=== PATIENT | female | born 1990 | race American Indian/Alaskan Native ===

== ENCOUNTER 2019-06-26 21:41 | Emergency (ER) | payer BC ==
--- NOTE | 2019-06-26 22:10 | EDM.PDOC ---
ED HPI GENERAL MEDICAL PROBLEM - General Chief Complaint: Abdominal Pain Stated Complaint: ABDOMINAL PAIN Time Seen by Provider: 06/26/19 21:42 Source of Information: Reports: Patient History Limitations: Reports: No Limitations - History of Present Illness INITIAL COMMENTS - FREE TEXT/NARRATIVE: HISTORY OF PRESENT ILLNESS: Patient is a 28-year-old female who presents with lower abdominal pain which she describes as bloating which is been going on since Monday. States that bloating sensation is mild and constant without radiation. Denies any urinary symptoms. Has white cug-gjps-dalbjcil vaginal discharge. No recent antibiotics. Has distant history of HSV but no other STIs. Denies any new sexual partners. Denies any diarrhea. States she feels constipated but did have a bowel movement today. Denies any melena or hematochezia. No chest pain or dyspnea. No fevers or chills. States her last. LMP was the first week in May and is unsure if she is . Denies any rash. Has nausea but denies any emesis. No vaginal bleeding. REVIEW OF SYSTEMS: Other than the symptoms associated with the present events, the following is reported with regard to recent health: General: (-) fever. HENT: (-) congestion. Respiratory: (-) cough. Cardiovascular: (-) chest pain. GI: (+) abdominal bloating sensation : (-) urinary complaints. Musculoskeletal: (-) other aches or pains. Endocrine: (-) generalized weakness. Neurological: (-) localized weakness. Skin: (-) rash PAST MEDICAL HISTORY: reviewed as per nursing notes SOCIAL HISTORY: reviewed as per nursing notes, MEDICATIONS: Per nurse's note ALLERGIES: Per nurse's note, reviewed by me PHYSICAL EXAMINATION: GENERALIZED APPEARANCE: well developed, well nourished in no distress VITAL SIGNS: Per nurse's note, reviewed by me SKIN: Warm, dry; (-) cyanosis; (-) rash. HEAD: (-) scalp swelling, (-) tenderness. EYES: (-) conjunctival pallor, (-) scleral icterus. ENMT: (-) stridor; mucous membranes moist. NECK: (-) tenderness, (-) stiffness, CHEST AND RESPIRATORY: (-) rales, (-) rhonchi, (-) wheezes; breath sounds equal bilaterally. HEART AND CARDIOVASCULAR: (-) irregularity; (-) murmur, (-) gallop. ABDOMEN AND GI: Soft; (+)very mild suprapubic abdominal tenderness, (-) RLQ or LLQ tenderness. (-) guarding, (-) rebound, (-) palpable masses, no McBurney' s point tenderness. EXTREMITIES: (-) deformity, (-) edema. NEURO AND PSYCH: Alert. Cranial nerves grossly intact; strength symmetric. gait steady DIAGNOSTICS: US: Tiny intrauterine fluid collection likely representing a very early gestational sac. consider repeat ultrasound in 1 week to evaluate viability. Labs reviewed EMERGENCY DEPARTMENT COURSE AND TREATMENT: Patient's condition remained stable during Emergency Department evaluation. Pt with symptoms of abdominal bloating but no pain and very minimal suprapubic tenderness. No peritoneal signs. Do not suspect ectopic at this time. She understands she must f/u with ob in 1-2 days and have repeat u/s in 1 week. She must return to ED immediately with any pain, vaginal bleeding, syncope or any new or worsening symptoms. Expressed verbal understanding. UA noted, appears contaminated, will await culture. PLAN AND FOLLOW-UP: Patient received written and verbal instructions regarding this condition. Return to ED immediately with any new or worsening symptoms. Follow up to be arranged by patient with pcp in 1-2 days for further evaluation. Given discharge precautions. patient expressed verbal understanding. 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 He is on valacyclovir 1 g daily.) Other Dermatologic History: Mastitis - Infectious Disease History Infectious Disease History: Reports: None - Past Surgical History Head Surgeries/Procedures: Reports: None Social & Family History - Family History Family Medical History: Noncontributory - Tobacco Use Smoking Status *Q: Never Smoker - Caffeine Use Caffeine Use: Reports: Soda - Recreational Drug Use Recreational Drug Use: No ED ROS GENERAL - Review of Systems Review Of Systems: See Below (see dictation) ED EXAM, GENERAL - Physical Exam Exam: See Below (see dictation) Course - Vital Signs Last Recorded V/S: Last Vital Signs Temp 96.9 F 06/26/19 21:45 Pulse 68 06/26/19 21:45 Resp 18 06/26/19 21:45 BP 123/78 06/26/19 21:45 Pulse Ox 98 06/26/19 21:45 - Orders/Labs/Meds Orders: Active Orders 24 hr Category Date Time Status CULTURE URINE [RM] Stat Lab 06/26/19 21:50 Received Labs: Laboratory Tests 06/26/19 06/26/19 06/26/19 Range/Units 21:50 21:50 22:34 WBC 7.75 (4.0-11.0) K/uL RBC 4.42 (4.30-5.90) M/uL Hgb 12.0 (12.0-16.0) g/dL Hct 37.9 (36.0-46.0) % MCV 85.7 (80.0-98.0) fL MCH 27.1 (27.0-32.0) pg MCHC 31.7 (31.0-37.0) g/dL RDW Std Deviation 41.0 (28.0-62.0) fl RDW Coeff of Rafaela 13 (11.0-15.0) % Plt Count 195 (150-400) K/uL MPV 10.70 (7.40-12.00) fL Neut % (Auto) 45.8 L (48.0-80.0) % Lymph % (Auto) 45.0 H (16.0-40.0) % Barron % (Auto) 6.2 (0.0-15.0) % Eos % (Auto) 2.7 (0.0-7.0) % Baso % (Auto) 0.3 (0.0-1.5) % Neut # (Auto) 3.6 (1.4-5.7) K/uL Lymph # (Auto) 3.5 H (0.6-2.4) K/uL Barron # (Auto) 0.5 (0.0-0.8) K/uL Eos # (Auto) 0.2 (0.0-0.7) K/uL Baso # (Auto) 0.0 (0.0-0.1) K/uL Nucleated RBC % 0.0 /100WBC Nucleated RBCs # 0 K/uL Sodium (136-145) mmol/L Potassium (3.5-5.1) mmol/L Chloride (98-107) mmol/L Carbon Dioxide (21.0-32.0) mmol/L BUN (7.0-18.0) mg/dL Creatinine (0.6-1.0) mg/dL Est Cr Clr Drug Dosing mL/min Estimated GFR (MDRD) ml/min Glucose (74-106) mg/dL Calcium (8.5-10.1) mg/dL Total Bilirubin (0.2-1.0) mg/dL AST (15-37) IU/L ALT (14-63) IU/L Alkaline Phosphatase (46-116) U/L Total Protein (6.4-8.2) g/dL Albumin (3.4-5.0) g/dL Globulin (2.6-4.0) g/dL Albumin/Globulin Ratio (0.9-1.6) Lipase (73-393) U/L Urine Color YELLOW Urine Appearance CLEAR Urine pH 6.0 (5.0-8.0) Ur Specific [place] 1.010 (1.001-1.035) Urine Protein NEGATIVE (NEGATIVE) mg/dL Urine Glucose (UA) NEGATIVE (NEGATIVE) mg/dL Urine Ketones NEGATIVE (NEGATIVE) mg/dL Urine Occult Blood NEGATIVE (NEGATIVE) Urine Nitrite NEGATIVE (NEGATIVE) Urine Bilirubin NEGATIVE (NEGATIVE) Urine Urobilinogen 0.2 (<2.0) EU/dL Ur Leukocyte Esterase TRACE H (NEGATIVE) Urine RBC 0-1 (0-2/HPF) Urine WBC 0-1 (0-5/HPF) Ur Epithelial Cells OCCASIONAL (NONE-FEW) Urine Bacteria RARE (NEGATIVE) Urine HCG, Qual POSITIVE (NEGATIVE) 06/26/19 Range/Units 22:34 WBC (4.0-11.0) K/uL RBC (4.30-5.90) M/uL Hgb (12.0-16.0) g/dL Hct (36.0-46.0) % MCV (80.0-98.0) fL MCH (27.0-32.0) pg MCHC (31.0-37.0) g/dL RDW Std Deviation (28.0-62.0) fl RDW Coeff of Rafaela (11.0-15.0) % Plt Count (150-400) K/uL MPV (7.40-12.00) fL Neut % (Auto) (48.0-80.0) % Lymph % (Auto) (16.0-40.0) % Barron % (Auto) (0.0-15.0) % Eos % (Auto) (0.0-7.0) % Baso % (Auto) (0.0-1.5) % Neut # (Auto) (1.4-5.7) K/uL Lymph # (Auto) (0.6-2.4) K/uL Barron # (Auto) (0.0-0.8) K/uL Eos # (Auto) (0.0-0.7) K/uL Baso # (Auto) (0.0-0.1) K/uL Nucleated RBC % /100WBC Nucleated RBCs # K/uL Sodium 142 (136-145) mmol/L Potassium 3.9 (3.5-5.1) mmol/L Chloride 106 (98-107) mmol/L Carbon Dioxide 26.1 (21.0-32.0) mmol/L BUN 5 L (7.0-18.0) mg/dL Creatinine 0.9 (0.6-1.0) mg/dL Est Cr Clr Drug Dosing 96.39 mL/min Estimated GFR (MDRD) > 60.0 ml/min Glucose 101 (74-106) mg/dL Calcium 8.4 L (8.5-10.1) mg/dL Total Bilirubin 0.2 (0.2-1.0) mg/dL AST 18 (15-37) IU/L ALT 24 (14-63) IU/L Alkaline Phosphatase 72 (46-116) U/L Total Protein 7.0 (6.4-8.2) g/dL Albumin 3.5 (3.4-5.0) g/dL Globulin 3.5 (2.6-4.0) g/dL Albumin/Globulin Ratio 1.0 (0.9-1.6) Lipase 140 (73-393) U/L Urine Color Urine Appearance Urine pH (5.0-8.0) Ur Specific [place] (1.001-1.035) Urine Protein (NEGATIVE) mg/dL Urine Glucose (UA) (NEGATIVE) mg/dL Urine Ketones (NEGATIVE) mg/dL Urine Occult Blood (NEGATIVE) Urine Nitrite (NEGATIVE) Urine Bilirubin (NEGATIVE) Urine Urobilinogen (<2.0) EU/dL Ur Leukocyte Esterase (NEGATIVE) Urine RBC (0-2/HPF) Urine WBC (0-5/HPF) Ur Epithelial Cells (NONE-FEW) Urine Bacteria (NEGATIVE) Urine HCG, Qual (NEGATIVE) Departure - Departure Time of Disposition: 23:51 Disposition: Home, Self-Care 01 Condition: Good Clinical Impression: , Abdominal pain - Discharge Information *PRESCRIPTION DRUG MONITORING PROGRAM REVIEWED*: Not Applicable *COPY OF PRESCRIPTION DRUG MONITORING REPORT IN PATIENT SHERLEY: Not Applicable Instructions: First Trimester of , [id number] Referrals: [facility] [Outside] Ulysses Sherwood MD [Physician] - 1 Day Forms: ED Department Discharge Additional Instructions: The following information is given to patients seen in the emergency department who are being discharged to home. This information is to outline your options for follow-up care. We provide all patients seen in our emergency department with a follow-up referral. The need for follow-up, as well as the timing and circumstances, are variable depending upon the specifics of your emergency department visit. If you don't have a primary care physician on staff, we will provide you with a referral. We always advise you to contact your personal physician following an emergency department visit to inform them of the circumstance of the visit and for follow-up with them and/or the need for any referrals to a consulting specialist. The emergency department will also refer you to a specialist when appropriate. This referral assures that you have the opportunity for follow-up care with a specialist. All of these measure are taken in an effort to provide you with optimal care, which includes your follow-up. Under all circumstances we always encourage you to contact your private physician who remains a resource for coordinating your care. When calling for follow-up care, please make the office aware that this follow-up is from your recent emergency room visit. If for any reason you are refused follow-up, please contact the [facility] Emergency Department at and asked to speak to the emergency department charge nurse. Sepsis Event Note - Evaluation Sepsis Screening Result: No Definite Risk - Focused Exam Vital Signs: Vital Signs Temp Pulse Resp BP Pulse Ox 06/26/19 21:45 96.9 F 68 18 123/78 98 Date Exam was Performed: 06/27/19 Time Exam was Performed: 00:08 - My Orders Last 24 Hours: My Active Orders 06/26/19 21:50 CULTURE URINE [RM] Stat - Assessment/Plan Last 24 Hours: My Active Orders 06/26/19 21:50 CULTURE URINE [RM] Stat
[2019-06-26 23:10] LABS: BLOOD UREA NITROGEN,BUN 5 mg/dL (7.0-18.0); CARBON DIOXIDE,CO2 26.1 mmol/L (21.0-32.0); CHLORIDE,CL 106 mmol/L (98-107); GLUCOSE RANDOM 101 mg/dL (74-106); LIPASE 140 U/L (73-393); POTASSIUM,K 3.9 mmol/L (3.5-5.1); SODIUM,NA 142 mmol/L (136-145)
--- NOTE | 2019-06-26 23:46 | US ---
INDICATION: Early with cramping and right-sided abdominal pain. OBSTETRICAL ULTRASOUND Technique: Transabdominal and transvaginal scanning of the pelvis was performed. Findings: The uterus contains a very small fluid collection measuring 4 x 2 x 3 millimeters. There is a suggestion of a tiny yolk sac within this fluid collection, suggesting that the collection represents a very early gestational sac. No embryonic pole or embryonic cardiac activity can be seen, likely due to the presumed very early stage of gestation. The ovaries appear within normal limits bilaterally. There is a probable corpus luteum within the right ovary. No adnexal masses are demonstrated. No significant free pelvic fluid is identified. IMPRESSION: Tiny intrauterine fluid collection likely representing a very early gestational sac. Consider repeat ultrasound in 1 week to evaluate viability. MICKY NAVARRO MD [employer] Dictated by Ced Navarro MD @ 06/26/2019 11:42:23 PM Dictated by: Ced Navarro MD @ 06/26/2019 23:45:22 (Electronically Signed)
== END 2019-06-27 00:07 | disposition home or self-care (01) ==
LOC: MW.ED 21:41
DX: O99.89 Other specified diseases and conditions complicating pregnancy, childbirth and the puerperium (principal); R10.30 Lower abdominal pain, unspecified
CPT/HCPCS: 36415; 76801; 76801-26; 80053; 81001; 81025; 83690; 85025; 87086; 99283; 99284-25

== ENCOUNTER 2019-08-02 10:55 | Emergency (ER) | payer BC ==
[2019-08-02] MEDS ORDERED: Nitrofurantoin Monohydrate/Macrocrystalline 100 MG Cap PO ONE (11:37)
--- NOTE | 2019-08-02 11:38 | EDM.PDOC ---
ED [facility] GENERAL MEDICAL PROBLEM - General Chief Complaint: Genitourinary Problem Stated Complaint: LOWER ABDOMINAL PAIN/PRESSURE Time Seen by Provider: 08/02/19 11:38 Source of Information: Reports: Patient History Limitations: Reports: No Limitations - History of Present Illness INITIAL COMMENTS - FREE TEXT/NARRATIVE: Patient is 28-year-old female presenting 10 weeks with complaints of suprapubic pressure. Patient feels irritation and feels like she has a urinary tract infection. The pain does not radiate anywhere. Patient does not have associated dysuria or hematuria. Patient states the symptoms started this morning. Patient does not have any associated fevers, chills, flank pain, vomiting, decreased appetite. Patient has no concern for sexually transmitted infection. Patient is monogamous with 1 partner. 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 Patient denies vaginal bleeding or significant cramping. Patient had no prior complications on previous . Pmhx: None Pshx: None Family Hx: noncontributory Smoking history? no Etoh use? none Drug use? none In addition to that documented in the HPI above, the additional ROS was obtained : Constitutional: Denies fevers or chills Eyes: Denies vision changes ENMT: Denies sore throat CV: Denies chest pain Resp: Denies SOB GI: Denies vomiting or diarrhea : Denies painful urination MSK: Denies recent trauma Skin: Denies new rashes Neuro: Denies new numbness or tingling or weakness Endocrine: Denies unexpected weight loss Heme: Denies bleeding disorders I have reviewed the triage vital signs Const: Well nourished, well developed, appears stated age Eyes: PERRL, no conjunctival injection HENT: NCAT, Neck supple without meningismus RESP: Unlabored respiratory effort GI: soft, non-tender, non-distended, no masses. No guarding or rebound MSK: No gross deformities appreciated Skin: Warm, dry. No rashes Neuro: Alert, viscosity inspector II-XII grossly intact. Sensation and motor function of extremities grossly intact. Psych: Appropriate mood and affect Assessment and plan: Patient 28-year-old female presenting with chief complaints consistent with urinary tract infection. Urinalysis demonstrates findings consistent with UTI. Patient initiated on antibiotics. I have no concern at this point for complications related to . No concern for sexually transmitted infection. 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 Patient initiated on antibiotics in the ER. Patient given return precautions. All questions were addressed and answered. Patient agrees with plan. 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: Musculoskeletal History: Reports: None Neurological History: Reports: None Psychiatric History: Reports: Anxiety, Depression Endocrine/Metabolic History: Reports: None Insulin Pump Model and Dietary Assistant: None Hematologic History: Reports: None Immunologic History: Reports: None Oncologic (Cancer) History: Reports: None Dermatologic History: Reports: Other (See Below) Other Dermatologic History: Mastitis - Infectious Disease History Infectious Disease History: Reports: Chicken Pox - Past Surgical History Head Surgeries/Procedures: Reports: None Social & Family History - Family History Family Medical History: Noncontributory - Tobacco Use Smoking Status *Q: Former Smoker Used Tobacco, but Quit: Yes Month/Year Tobacco Last Used: 2018 - Caffeine Use Caffeine Use: Reports: Soda - Recreational Drug Use Recreational Drug Use: No ED ROS GENERAL - Review of Systems Review Of Systems: See Below ED EXAM, RENAL/ - Physical Exam Exam: See Below Course - Vital Signs Last Recorded V/S: Last Vital Signs Temp 35.9 C L 08/02/19 11:03 Pulse 67 08/02/19 11:03 Resp 17 08/02/19 11:03 BP 106/70 08/02/19 11:03 Pulse Ox 100 08/02/19 11:03 - Orders/Labs/Meds Orders: Active Orders 24 hr Category Date Time Status CULTURE URINE [RM] Stat Lab 08/02/19 11:07 Received Labs: Laboratory Tests 08/02/19 08/02/19 Range/Units 11:07 11:07 Urine Color DARK YELLOW Urine Appearance CLOUDY Urine pH 7.0 (5.0-8.0) Ur Specific [place] 1.025 (1.001-1.035) Urine Protein 30 H (NEGATIVE) mg/dL Urine Glucose (UA) NEGATIVE (NEGATIVE) mg/dL Urine Ketones NEGATIVE (NEGATIVE) mg/dL Urine Occult Blood TRACE-INTACT H (NEGATIVE) Urine Nitrite POSITIVE H (NEGATIVE) Urine Bilirubin NEGATIVE (NEGATIVE) Urine Urobilinogen 1.0 (<2.0) EU/dL Ur Leukocyte Esterase LARGE H (NEGATIVE) Urine RBC 0-3 (0-2/HPF) Urine WBC 60-80 (0-5/HPF) Ur Epithelial Cells RARE (NONE-FEW) Urine Bacteria 3+ H (NEGATIVE) Urine HCG, Qual POSITIVE (NEGATIVE) Meds: Medications Discontinued Medications Generic Name Dose Route Start Last Admin Trade Name Freq PRN Reason Stop Dose Admin Nitrofurantoin Macrocrystals 100 mg 08/02/19 11:37 08/02/19 11:46 Macrobid PO 08/02/19 11:38 100 mg ONETIME ONE Administration Departure - Departure Time of Disposition: 11:38 Disposition: Home, Self-Care 01 Clinical Impression: UTI, Urinary tract infectious disease - Discharge Information Prescriptions: Nitrofurantoin Monohyd/M-Cryst [Macrobid 100 mg Capsule] 100 mg PO BID #9 capsule Instructions: Urinary Tract Infection, Adult, [id number] Referrals: Savita Bradford CNM [Primary Care Provider] - Forms: ED Department Discharge Additional Instructions: The following information is given to patients seen in the emergency department who are being discharged to home. This information is to outline your options for follow-up care. We provide all patients seen in our emergency department with a follow-up referral. The need for follow-up, as well as the timing and circumstances, are variable depending upon the specifics of your emergency department visit. If you don't have a primary care physician on staff, we will provide you with a referral. We always advise you to contact your personal physician following an emergency department visit to inform them of the circumstance of the visit and for follow-up with them and/or the need for any referrals to a consulting specialist. The emergency department will also refer you to a specialist when appropriate. This referral assures that you have the opportunity for follow-up care with a specialist. All of these measure are taken in an effort to provide you with optimal care, which includes your follow-up. Under all circumstances we always encourage you to contact your private physician who remains a resource for coordinating your care. When calling for follow-up care, please make the office aware that this follow-up is from your recent emergency room visit. If for any reason you are refused follow-up, please contact the [facility] Emergency Department at and asked to speak to the emergency department charge nurse. Sepsis Event Note - Evaluation Sepsis Screening Result: No Definite Risk - Focused Exam Vital Signs: Vital Signs Temp Pulse Resp BP Pulse Ox 08/02/19 11:03 35.9 C L 67 17 106/70 100 Date Exam was Performed: 08/02/19 Time Exam was Performed: 11:50 - My Orders Last 24 Hours: My Active Orders 08/02/19 11:07 CULTURE URINE [RM] Stat - Assessment/Plan Last 24 Hours: My Active Orders 08/02/19 11:07 CULTURE URINE [RM] Stat
== END 2019-08-02 11:49 | disposition home or self-care (01) ==
LOC: MW.ED 10:55
DX: O23.41 Unspecified infection of urinary tract in pregnancy, first trimester (principal); Z3A.10 10 weeks gestation of pregnancy; Z87.891 Personal history of nicotine dependence
CPT/HCPCS: 81001; 81025; 87086; 87088; 87186; 99284; A9270; 99282

== ENCOUNTER 2019-11-16 01:02 | Emergency (ER) | payer BC ==
[2019-11-16] MEDS ORDERED: Sodium Chloride 0.9% 10 ML Syringe FLUSH PRN (01:18)
[2019-11-16] MEDS ORDERED: Sodium Chloride 0.9% 2.5 ML Syringe FLUSH PRN (01:18)
[2019-11-16] MEDS ORDERED: Acetaminophen 500 MG Tab PO ONE (01:20)
[2019-11-16] MEDS ORDERED: fentaNYL 50 MCG/ML SDV IVPUSH ONE (01:20)
[2019-11-16 01:38] LABS: BLOOD UREA NITROGEN,BUN 4 mg/dL (7.0-18.0); CARBON DIOXIDE,CO2 24.6 mmol/L (21.0-32.0); CHLORIDE,CL 105 mmol/L (98-107); GLUCOSE RANDOM 91 mg/dL (74-106); POTASSIUM,K 3.7 mmol/L (3.5-5.1); SODIUM,NA 139 mmol/L (136-145)
--- NOTE | 2019-11-16 02:03 | EDM.PDOC ---
ED HPI GENERAL MEDICAL PROBLEM - General Chief Complaint: Trauma Stated Complaint: FELL OFF HORSE; 6 MO PREG Time Seen by Provider: 11/16/19 01:18 Source of Information: Reports: Patient, Old Records History Limitations: Reports: No Limitations - History of Present Illness INITIAL COMMENTS - FREE TEXT/NARRATIVE: 28-year-old female with no past medical history presenting with injuries after riding a horse. Patient presents through triage as a trauma alert. Patient states that around 7 PM this evening, she was bucked off of a horse. She states that she hit her left shoulder and the back of her neck. She does not think that she lost consciousness. She is currently , approximately 24 weeks and 6 days. . She arrives the emergency department complaining of pain to the left posterolateral neck, left hip, and the medial aspect of the left thigh. She is not currently taking any medications. ROS: A 10-point review of systems was negative, except as noted in the HPI (or in the ROS section of this note). Past medical history: Reviewed, no additional pertinent history. Surgical history: Reviewed in system, no additional pertinent history. Social history: Reviewed in system, no additional pertinent history. Family history: Reviewed in system, no additional pertinent history. PHYSICAL EXAM Vital signs reviewed. Nursing notes reviewed. Constitutional: Awake, alert, non-distressed. Head: Normocephalic, atraumatic. Eyes: EOMI, conjunctiva normal, no discharge, no scleral icterus. Pupils 3 mm bilaterally. Neck: Mild tenderness to palpation to the left side of the neck. Ears, Nose, Throat: External ears and nose normal, moist oral mucosa. No otorrhea or rhinorrhea. No raccoons eyes or parish sign. Cardiovascular: 2+ radial pulses bilaterally, capillary refill less than 2 seconds. Pulmonary: normal work of breathing, no accessory muscle use. CTA BL. Abdomen/GI: Soft, nontender, nondistended, no guarding or rigidity, no masses. Stable pelvis. Musculoskeletal: No deformities. Mild tenderness to palpation of the left hip. Integumentary: Appropriate color for ethnicity, warm, dry, no pallor or jaundice, no rash. Contusion over the left medial thigh. Neurologic: Alert, answering questions appropriately, normal speech, no facial droop, moving all extremities well. 5/5 strength all extremities, sensation intact to light touch x4 Psychiatric: Appropriate mood and affect, normal thought process. - Related Data Allergies Allergy/AdvReac Type Severity Reaction Status Date / Time No Known Allergies Allergy Verified 11/16/19 01:20 Home Meds: Home Meds . [No Known Home Meds] 11/16/19 [History] Past Medical History HEENT History: Reports: None Cardiovascular History: Reports: None Respiratory History: Reports: None Gastrointestinal History: Reports: None Genitourinary History: Reports: None HOME HEALTH TRAVEL OT History: Reports: Musculoskeletal History: Reports: None Neurological History: Reports: None Psychiatric History: Reports: Anxiety, Depression Endocrine/Metabolic History: Reports: None Insulin Pump Model and Health Policy Nurse: None Hematologic History: Reports: None Immunologic History: Reports: None Oncologic (Cancer) History: Reports: None Dermatologic History: Reports: Other (See Below) Other Dermatologic History: Mastitis - Infectious Disease History Infectious Disease History: Reports: Chicken Pox - Past Surgical History Head Surgeries/Procedures: Reports: None Social & Family History - Family History Family Medical History: Noncontributory - Tobacco Use Smoking Status *Q: Never Smoker Second Hand Smoke Exposure: No - Caffeine Use Caffeine Use: Reports: Coffee - Recreational Drug Use Recreational Drug Use: No Review of Systems - Review of Systems Review Of Systems: See Below ED EXAM, GENERAL - Physical Exam Exam: See Below ED ULTRASOUND - FAST Exam Indication: blunt trauma Exam type: FAST exam Findings: no free fluid noted Impression: normal exam Images archived: Yes Course - Vital Signs Text/Narrative:: Patient hemodynamically stable, afebrile, well-appearing, looks nontoxic. Differential diagnosis includes but is not limited to: Intracranial injury/hemorrhage, skull fracture, facial fractures, spine fractures, chest injury, aortic injury, pneumothorax, hemothorax, intraabdominal hemorrhage, bowel injury, solid organ injury, extremity fractures, pelvis fracture, abras ions, soft tissue injuries, placental abruption, uterine rupture, and many others. Trauma alert and cleared upon arrival. E-FAST ultrasound negative. Hemodynamically stable. IV access established and labs sent. Given IV fentanyl and acetaminophen for pain. Erp Implementation Consultant Dr. Oliveira was already in the emergency department and evaluated the patient at the bedside. Gtyoy-ca-ozjy ultrasound shows a fetus in the uterus with motion and normal cardiac activity with a heart rate of 139 bpm. Labs show mild leukocytosis, mild normocytic anemia. Normal INR and lactate. Normal electrolytes. Negative troponin. Negative alcohol, blood type Rh+ so RhoGam is not indicated. To CT scanner for gan scan series. These showed no acute findings other than a questionable left-sided TP fracture at L2. Pain well controlled after fentanyl and acetaminophen. The patient remained on bedside tocometric monitoring with heart rate 130-140s. Patient medically cleared from an emergency department standpoint and will go to labor and delivery for further evaluation and tocometric monitoring. I spoke with the passenger service representative Dr. Marielos Oliveira to apprise her of the patient's work-up and condition. Transferred to L&D in good condition.. Last Recorded V/S: Last Vital Signs Temp 36.1 C 11/16/19 01:03 Pulse 64 11/16/19 01:03 Resp 17 11/16/19 01:03 BP 102/49 L 11/16/19 01:03 Pulse Ox 97 11/16/19 01:03 - Orders/Labs/Meds Orders: Active Orders 24 hr Category Date Time Status Admission Status [Patient Status] [ADT] Stat ADT 11/16/19 04:08 Active Cardiac Monitoring [RC] . DIRECTED Care 11/16/19 01:18 Active Pulse Oximetry [RC] ASDIRECTED Care 11/16/19 01:18 Active Nothing Per Oral Diet [DIET] Diet 11/16/19 Dinner Active Sodium Chloride 0.9% [Saline Flush] Med 11/16/19 01:18 Active 10 ml FLUSH ASDIRECTED PRN Sodium Chloride 0.9% [Saline Flush] Med 11/16/19 01:18 Active 2.5 ml FLUSH ASDIRECTED PRN Saline Lock Insert [OM.PC] Stat Oth 11/16/19 01:19 Ordered Medication Orders Sodium Chloride (Saline Flush) 10 ml FLUSH ASDIRECTED PRN PRN Reason: Keep Vein Open Last Admin: 11/16/19 02:36 Dose: 10 ml Documented by: REGINE Sodium Chloride (Saline Flush) 2.5 ml FLUSH ASDIRECTED PRN PRN Reason: Keep Vein Open Last Admin: 11/16/19 02:36 Dose: 2.5 ml Documented by: REGINE Labs: Laboratory Tests 11/16/19 11/16/19 11/16/19 Range/Units 01:05 01:05 01:05 WBC (4.0-11.0) K/uL RBC (4.30-5.90) M/uL Hgb (12.0-16.0) g/dL Hct (36.0-46.0) % MCV (80.0-98.0) fL MCH (27.0-32.0) pg MCHC (31.0-37.0) g/dL RDW Std Deviation (28.0-62.0) fl RDW Coeff of Rafaela (11.0-15.0) % Plt Count (150-400) K/uL MPV (7.40-12.00) fL Neut % (Auto) (48.0-80.0) % Lymph % (Auto) (16.0-40.0) % [place] % (Auto) (0.0-15.0) % Eos % (Auto) (0.0-7.0) % Baso % (Auto) (0.0-1.5) % Neut # (Auto) (1.4-5.7) K/uL Lymph # (Auto) (0.6-2.4) K/uL [place] # (Auto) (0.0-0.8) K/uL Eos # (Auto) (0.0-0.7) K/uL Baso # (Auto) (0.0-0.1) K/uL INR 0.94 Lactate 1.2 (0.20-2.00) mmol/L Sodium 139 (136-145) mmol/L Potassium 3.7 (3.5-5.1) mmol/L Chloride 105 (98-107) mmol/L Carbon Dioxide 24.6 (21.0-32.0) mmol/L BUN 4 L (7.0-18.0) mg/dL Creatinine 0.8 (0.6-1.0) mg/dL Est Cr Clr Drug Dosing 108.44 mL/min Estimated GFR (MDRD) > 60.0 ml/min Glucose 91 (74-106) mg/dL Calcium 9.2 (8.5-10.1) mg/dL Total Bilirubin 0.2 (0.2-1.0) mg/dL AST 18 (15-37) IU/L ALT 12 L (14-63) IU/L Alkaline Phosphatase 87 (46-116) U/L Troponin I < 0.050 (0.000-0.056) ng/mL Total Protein 6.9 (6.4-8.2) g/dL Albumin 2.8 L (3.4-5.0) g/dL Globulin 4.1 H (2.6-4.0) g/dL Albumin/Globulin Ratio 0.7 L (0.9-1.6) Ethyl Alcohol <3 mg/dL Blood Type 11/16/19 11/16/19 Range/Units 01:05 01:05 WBC 12.91 H (4.0-11.0) K/uL RBC 3.93 L (4.30-5.90) M/uL Hgb 10.6 L (12.0-16.0) g/dL Hct 32.7 L (36.0-46.0) % MCV 83.2 (80.0-98.0) fL MCH 27.0 (27.0-32.0) pg MCHC 32.4 (31.0-37.0) g/dL RDW Std Deviation 36.4 (28.0-62.0) fl RDW Coeff of Rafaela 12 (11.0-15.0) % Plt Count 237 (150-400) K/uL MPV 11.80 (7.40-12.00) fL Neut % (Auto) 68.8 (48.0-80.0) % Lymph % (Auto) 25.2 (16.0-40.0) % [place] % (Auto) 4.9 (0.0-15.0) % Eos % (Auto) 0.9 (0.0-7.0) % Baso % (Auto) 0.2 (0.0-1.5) % Neut # (Auto) 8.9 H (1.4-5.7) K/uL Lymph # (Auto) 3.3 H (0.6-2.4) K/uL [place] # (Auto) 0.6 (0.0-0.8) K/uL Eos # (Auto) 0.1 (0.0-0.7) K/uL Baso # (Auto) 0.0 (0.0-0.1) K/uL INR Lactate (0.20-2.00) mmol/L Sodium (136-145) mmol/L Potassium (3.5-5.1) mmol/L Chloride (98-107) mmol/L Carbon Dioxide (21.0-32.0) mmol/L BUN (7.0-18.0) mg/dL Creatinine (0.6-1.0) mg/dL Est Cr Clr Drug Dosing mL/min Estimated GFR (MDRD) ml/min Glucose (74-106) mg/dL Calcium (8.5-10.1) mg/dL Total Bilirubin (0.2-1.0) mg/dL AST (15-37) IU/L ALT (14-63) IU/L Alkaline Phosphatase (46-116) U/L Troponin I (0.000-0.056) ng/mL Total Protein (6.4-8.2) g/dL Albumin (3.4-5.0) g/dL Globulin (2.6-4.0) g/dL Albumin/Globulin Ratio (0.9-1.6) Ethyl Alcohol mg/dL Blood Type A POSITIVE Meds: Medications Generic Name Dose Route Start Last Admin Trade Name Freq PRN Reason Stop Dose Admin Sodium Chloride 10 ml 11/16/19 01:18 11/16/19 02:36 Saline Flush FLUSH 10 ml ASDIRECTED PRN Administration Keep Vein Open Sodium Chloride 2.5 ml 11/16/19 01:18 11/16/19 02:36 Saline Flush FLUSH 2.5 ml ASDIRECTED PRN Administration Keep Vein Open Discontinued Medications Generic Name Dose Route Start Last Admin Trade Name Freq PRN Reason Stop Dose Admin Acetaminophen 1,000 mg 11/16/19 01:20 11/16/19 02:35 Tylenol Extra Strength PO 11/16/19 01:21 1,000 mg ONETIME ONE Administration Fentanyl 50 mcg 11/16/19 01:20 11/16/19 02:36 Fentanyl IVPUSH 11/16/19 01:21 Not Given ONETIME ONE Iopamidol 100 ml 11/16/19 02:29 11/16/19 02:29 Isovue-370 (76%) IVPUSH 11/16/19 02:30 100 ml ONETIME ONE Administration Departure - Departure Time of Disposition: 04:00 Disposition: DC/Tfer to Other 70 Clinical Impression: Animal-rider injured by fall from or being thrown from horse in noncollision accident, initial encounter, Left hip pain, Neck pain on left side Contusion of left thigh Qualifiers: Encounter type: initial encounter Qualified Code(s): S70.12XA - Contusion of left thigh, initial encounter - Discharge Information Referrals: PCP,None [Primary Care Provider] - Forms: ED Department Discharge Sepsis Event Note (ED) - Evaluation Sepsis Screening Result: No Definite Risk - Focused Exam Vital Signs: Vital Signs Temp Pulse Resp BP Pulse Ox 11/16/19 01:03 36.1 C 64 17 102/49 L 97 - My Orders Last 24 Hours: My Active Orders 11/16/19 01:18 Cardiac Monitoring [RC] . DIRECTED Pulse Oximetry [RC] ASDIRECTED Sodium Chloride 0.9% [Saline Flush] 10 ml FLUSH ASDIRECTED PRN Sodium Chloride 0.9% [Saline Flush] 2.5 ml FLUSH ASDIRECTED PRN 11/16/19 01:19 Saline Lock Insert [OM.PC] Stat 11/16/19 04:08 Admission Status [Patient Status] [ADT] Stat 11/16/19 Dinner Nothing Per Oral Diet [DIET] - Assessment/Plan Last 24 Hours: My Active Orders 11/16/19 01:18 Cardiac Monitoring [RC] . DIRECTED Pulse Oximetry [RC] ASDIRECTED Sodium Chloride 0.9% [Saline Flush] 10 ml FLUSH ASDIRECTED PRN Sodium Chloride 0.9% [Saline Flush] 2.5 ml FLUSH ASDIRECTED PRN 11/16/19 01:19 Saline Lock Insert [OM.PC] Stat 11/16/19 04:08 Admission Status [Patient Status] [ADT] Stat 11/16/19 Dinner Nothing Per Oral Diet [DIET]
[2019-11-16] MEDS ORDERED: Iopamidol 755 Mg/ML 100 ML Bottle IVPUSH ONE (02:29)
--- NOTE | 2019-11-16 03:23 | CT ---
INDICATION: Thrown from horse. TECHNIQUE: CT cervical spine without contrast. COMPARISON: None FINDINGS: There is straightening of the cervical lordosis. This can be seen with muscle spasm and/or C-collar placement. There is otherwise no traumatic malalignment. No acute fracture. No suspicious bone lesion. Intervertebral disc space height is preserved. Facet joints are maintained. Prevertebral soft tissues are normal. Airway is patent. Lung apices are clear. IMPRESSION: 1. Straightening of the cervical lordosis. This can be seen with muscle spasm and/or C-collar placement. 2. There is otherwise no traumatic malalignment or fracture identified. Dictated by Arsen Thompson MD @ 11/16/2019 3:21:39 AM Please note that all CT scans at this facility use dose modulation, iterative reconstruction, and/or weight-based dosing when appropriate to reduce radiation dose to as low as reasonably achievable. Dictated by: Arsen Thompson MD @ 11/16/2019 03:21:46 (Electronically Signed)
--- NOTE | 2019-11-16 03:27 | CT ---
INDICATION: Thrown from horse. TECHNIQUE: CT Head without contrast. COMPARISON: None FINDINGS: CSF spaces: Within normal limits for age. No hydrocephalus. Brain parenchyma: The triana-white differentiation is normal. No sign of mass, hemorrhage, or midline shift. Skull base and calvarium: No skull fracture. The frontal sinus is hypoplastic. There is complete opacification of the visualized right maxillary sinus with bony remodeling of the martel of the maxillary sinus. This suggests chronic sinusitis. Mild mucosal thickening in the left maxillary sinus. Sphenoid sinus is opacified, also with a degree of bony remodeling. Mastoid air cells are well aerated. IMPRESSION: 1. No acute intracranial abnormality. 2. Findings of chronic sinusitis as above. Dictated by Arsen Thompson MD @ 11/16/2019 3:26:06 AM Please note that all CT scans at this facility use dose modulation, iterative reconstruction, and/or weight-based dosing when appropriate to reduce radiation dose to as low as reasonably achievable. Dictated by: Arsen Thompson MD @ 11/16/2019 03:26:13 (Electronically Signed)
--- NOTE | 2019-11-16 03:40 | CT ---
INDICATION: Thrown from horse. Second trimester . TECHNIQUE: CT chest, abdomen and pelvis acquired with IV contrast. COMPARISON: None FINDINGS: Chest: Cardiovascular structures: Heart size is normal. Thoracic aorta and main pulmonary artery are normal in caliber. Mediastinum and emily: No mass or adenopathy. Miscellaneous: 0.9 cm low-density lesion in the left thyroid lobe. Lungs: Clear. No pneumothorax. Pleura and pericardium: No effusions. Chest wall and axilla: No mass or adenopathy. Abdomen and Pelvis: Liver: Unremarkable. Spleen: Unremarkable. Pancreas: Unremarkable. Gallbladder and bile ducts: Unremarkable. Kidneys: Unremarkable. Adrenal glands: Unremarkable. GI tract: No acute bowel abnormality. Vascular structures: Unremarkable. Lymph nodes: Unremarkable. Miscellaneous: No ascites. No free air. Pelvic Organs: Gravid uterus with evidence of second-trimester . Urinary bladder is distended without wall thickening. Bones: No acute abnormality. No suspicious bone lesion. IMPRESSION: No traumatic abnormality in the chest, abdomen or pelvis. Dictated by Arsen Thompson MD @ 11/16/2019 3:38:46 AM Please note that all CT scans at this facility use dose modulation, iterative reconstruction, and/or weight-based dosing when appropriate to reduce radiation dose to as low as reasonably achievable. Dictated by: Arsen Thompson MD @ 11/16/2019 03:38:54 (Electronically Signed)
--- NOTE | 2019-11-16 03:40 | CT ---
INDICATION: Thrown from horse. Second trimester . TECHNIQUE: CT chest, abdomen and pelvis acquired with IV contrast. COMPARISON: None FINDINGS: Chest: Cardiovascular structures: Heart size is normal. Thoracic aorta and main pulmonary artery are normal in caliber. Mediastinum and emiyl: No mass or adenopathy. Miscellaneous: 0.9 cm low-density lesion in the left thyroid lobe. Lungs: Clear. No pneumothorax. Pleura and pericardium: No effusions. Chest wall and axilla: No mass or adenopathy. Abdomen and Pelvis: Liver: Unremarkable. Spleen: Unremarkable. Pancreas: Unremarkable. Gallbladder and bile ducts: Unremarkable. Kidneys: Unremarkable. Adrenal glands: Unremarkable. GI tract: No acute bowel abnormality. Vascular structures: Unremarkable. Lymph nodes: Unremarkable. Miscellaneous: No ascites. No free air. Pelvic Organs: Gravid uterus with evidence of second-trimester . Urinary bladder is distended without wall thickening. Bones: No acute abnormality. No suspicious bone lesion. IMPRESSION: No traumatic abnormality in the chest, abdomen or pelvis. Dictated by Arsen Thompson MD @ 11/16/2019 3:39:23 AM Please note that all CT scans at this facility use dose modulation, iterative reconstruction, and/or weight-based dosing when appropriate to reduce radiation dose to as low as reasonably achievable. Dictated by: Arsen Thompson MD @ 11/16/2019 03:39:30 (Electronically Signed)
--- NOTE | 2019-11-16 03:44 | CT ---
INDICATION: Thrown from horse. Second trimester . TECHNIQUE: CT lumbar spine without contrast. COMPARISON: None FINDINGS: Vertebral alignment: Alignment is normal. Vertebrae: There are no fractures or suspicious bony lesions. Discs and facet joints: Disc spaces and facets are within normal limits. Extraspinal findings: 2nd trimester gravid uterus noted. The bladder is distended. IMPRESSION: No acute fracture or traumatic malalignment. Dictated by Arsen Thompson MD @ 11/16/2019 3:42:54 AM Please note that all CT scans at this facility use dose modulation, iterative reconstruction, and/or weight-based dosing when appropriate to reduce radiation dose to as low as reasonably achievable. Dictated by: Arsen Thompson MD @ 11/16/2019 03:43:05 (Electronically Signed)
--- NOTE | 2019-11-16 04:01 | CT ---
INDICATION: Fall from horse. Second trimester . TECHNIQUE: CT thoracic spine without contrast. COMPARISON: None FINDINGS: There may be a subtle nondisplaced fracture of the tip of the left transverse process of L2. This is better imaged on this exam rather than the CT lumbar spine. No fracture of the thoracic spine identified. Alignment of the thoracic spine is normal. Intervertebral disc space height is preserved. Facet joints are maintained. Visualized soft tissues are normal. IMPRESSION: 1. There may be a subtle nondisplaced fracture of the tip of the left transverse process of L2. This is better imaged on this exam rather than the CT lumbar spine. 2. No acute fracture or traumatic malalignment in the thoracic spine. Dictated by Arsen Thompson MD @ 11/16/2019 3:59:00 AM Please note that all CT scans at this facility use dose modulation, iterative reconstruction, and/or weight-based dosing when appropriate to reduce radiation dose to as low as reasonably achievable. Dictated by: Arsen Thompson MD @ 11/16/2019 03:59:10 (Electronically Signed)
== END 2019-11-16 05:17 | disposition other institution (70) ==
LOC: MW.ED 01:02
DX: O9A.212 Injury, poisoning and certain other consequences of external causes complicating pregnancy, second trimester (principal); S70.12XA Contusion of left thigh, initial encounter; M25.552 Pain in left hip; M54.2 Cervicalgia; Z3A.24 24 weeks gestation of pregnancy; V80.010A Animal-rider injured by fall from or being thrown from horse in noncollision accident, initial encounter; Y93.52 Activity, horseback riding
CPT/HCPCS: 36415; 70450; 71260; 72125; 74177; 80053; 80307; 83605; 84484; 85025; 85610; 86900; 86901; 87635; 99284; A9270; Q9967; 72128; 72128-26; 72131; 72131-26; 99285; U0002

== ENCOUNTER 2020-03-01 19:14 | Inpatient (IN) | payer BC ==
--- NOTE | 2020-03-01 22:26 | PCM.LDHP ---
L&D History of Present Illness - General Date of Service: 03/01/20 Admit Problem/Dx: Admission Diagnosis/Problem Admission Diagnosis/Problem 03/01/20 22:21 presenting to L&D at 40 1/7 weeks (TAZ: 02/29/20) with reports of regular uterine contractions, approximately q3-5 minutes; A+, Rubella equivocal, GBS negative; SVE by this shoe stitcher was 5cm/90%/-1, soft, midposition; vertex by Elijah's 03/01/20 22:27 Source of Information: Patient History Limitations: Reports: No Limitations - Related Data Allergies/Adverse Reactions: Allergies Allergy/AdvReac Type Severity Reaction Status Date / Time No Known Allergies Allergy Verified 02/07/20 17:08 Home Medications: Home Meds Pnv No.95/Ferrous Fum/Folic AC [ Tablet] 1 each PO DAILY 02/07/20 [History] valACYclovir HCl [valACYclovir] 1,000 mg PO DAILY 02/21/20 [History] Past Medical History - Past Health History Medical/Surgical History: Denies Medical/Surgical History HEENT History: Reports: None Cardiovascular History: Reports: None Respiratory History: Reports: None Gastrointestinal History: Reports: None Genitourinary History: Reports: None INTERVENTIONAL RADIOLOGIST History: Reports: (39 weeks - breech) Musculoskeletal History: Reports: None Neurological History: Reports: None Psychiatric History: Reports: Anxiety, Depression Endocrine/Metabolic History: Reports: None Insulin Pump Model and Guide Plant: None Hematologic History: Reports: None Immunologic History: Reports: None Oncologic (Cancer) History: Reports: None Dermatologic History: Reports: Other (See Below) Other Dermatologic History: Mastitis - Infectious Disease History Infectious Disease History: Reports: Chicken Pox, Other (See Below) - Past Surgical History Head Surgeries/Procedures: Reports: None Social & Family History - Family History Family Medical History: No Pertinent Family History - Caffeine Use Caffeine Use: Reports: Coffee, Energy Drinks H&P Review of Systems - Review of Systems: Review Of Systems: See Below General: Reports: No Symptoms HEENT: Reports: No Symptoms Pulmonary: Reports: No Symptoms Cardiovascular: Reports: No Symptoms Gastrointestinal: Reports: No Symptoms Genitourinary: Reports: No Symptoms Musculoskeletal: Reports: No Symptoms Skin: Reports: No Symptoms Psychiatric: Reports: No Symptoms Neurological: Reports: No Symptoms Hematologic/Lymphatic: Reports: No Symptoms Immunologic: Reports: No Symptoms L&D Exam - Exam Exam: See Below - OB Specific Contraction Intensity: Moderate Movement: Active Heart Tones: Present Heart Rate (FHR) Variability: Moderate (6-25 bmp) Presentation: Vertex - Gallegos Score Gallegos Score Cervix Position: Midposition Gallegos Score Consistency: Soft Gallegos Score Effacement: >80% Gallegos Score Dilation: > 5 cm Gallegos Score Infant's Station: -1 ,0 Gallegos Score Total: 11 - Exam General: Alert, Oriented, Cooperative Lungs: Normal Respiratory Effort Cardiovascular: Regular Rate, Regular Rhythm GI/Abdominal Exam: Soft, Non-Tender Rectal Exam: Deferred Genitourinary: Deferred Back Exam: Normal Inspection, Full Range of Motion Extremities: Normal Inspection, Normal Range of Motion, Non-Tender, No Pedal Edema, Normal Capillary Refill Skin: Warm, Dry, Intact Neurological: Strength Equal Bilateral, Normal Gait, Normal Speech, Normal Tone, Sensation Intact Psychiatric: Alert, Normal Affect, Normal Mood - Problem List (1) Supervision of normal IUP (intrauterine ) in multigravida SNOMED Code(s): 580751915, [id number], [id number] ICD Code: Z34.80 - ENCOUNTER FOR SUPRVSN OF NORMAL , UNSP TRIMESTER Status: Acute Priority: High Current Visit: Yes Qualifiers: Trimester: third trimester Qualified Code(s): Z34.83 - Encounter for supervision of other normal , third trimester Problem List Initiated/Reviewed/Updated: Yes Assessment/Plan Comment:: Admit A: presenting to L&D at 40 1/7 weeks (TAZ: 02/29/20) with reports of regular uterine contractions, approximately q3-5 minutes; A+, Rubella equivocal, GBS negative; SVE by this shoe stitcher was 5cm/90%/-1, soft, midposition; vertex by Elijah's P: Anticipate ; epidural PRN; Dr. Miller updated.
[2020-03-01] MEDS ORDERED: Tranexamic Acid 1,000 MG in Sodium Chloride 0.9% 100 ML IV PRN (22:34)
[2020-03-01] MEDS ORDERED: Methylergonovine 0.2 MG/1 ML Amp IM PRN (22:34)
[2020-03-01] MEDS ORDERED: Sodium Chloride 0.9% 10 ML Syringe FLUSH PRN (22:34)
[2020-03-01] MEDS ORDERED: Water For Irrigation,Sterile 1,000 ML Container IRR PRN (22:34)
[2020-03-01] MEDS ORDERED: Lidocaine 1% 50 ML MDV INJECT PRN (22:34)
[2020-03-01] MEDS ORDERED: Sodium Chloride 0.9% 10 ML SDV IV PRN (22:34)
[2020-03-01] MEDS ORDERED: Butorphanol 1 MG/ML SDV IVPUSH PRN (22:34)
[2020-03-01] MEDS ORDERED: Carboprost Tromethamine 250 MCG/1 ML Amp IM PRN (22:34)
[2020-03-01] MEDS ORDERED: Misoprostol 200 MCG Tab PO PRN (22:34)
[2020-03-01] MEDS ORDERED: Ondansetron 4 MG/2 ML SDV IVPUSH PRN (22:34)
[2020-03-01] MEDS ORDERED: Nalbuphine 10 MG/1 ML Vial IVPUSH PRN (22:34)
[2020-03-01] MEDS ORDERED: Sodium Chloride 0.9% 2.5 ML Syringe FLUSH PRN (22:34)
[2020-03-01] MEDS ORDERED: Oxytocin/0.9 % Sodium Chloride 30 UNIT/500 ML BAG IV SCH (22:45)
[2020-03-01] MEDS ORDERED: Lactated Ringers 1,000 ML IV SCH (22:45)
[2020-03-02] MEDS ORDERED: fentaNYL 100 MCG/2 ML SDV ONE (04:02)
[2020-03-02] MEDS ORDERED: Ropivacaine HCl/PF 100 ML ONE (04:02)
--- NOTE | 2020-03-02 04:25 | PCM.PREANE ---
Preanesthetic Assessment - Anesthesia/Transfusion/Family Hx Anesthesia History: No Prior Anesthesia Family History of Anesthesia Reaction: No Transfusion History: No Prior Transfusion(s) - Physical Assessment NPO Status Date: 03/02/20 NPO Status Time: 00:05 Height: 1.75 m Weight: 80.286 kg ASA Class: 2 - Lab Values: Laboratory Last Values WBC 8.92 K/uL (4.0-11.0) 03/01/20 21:35 RBC 4.87 M/uL (4.30-5.90) 03/01/20 21:35 Hgb 12.7 g/dL (12.0-16.0) 03/01/20 21:35 Hct 39.4 % (36.0-46.0) 03/01/20 21:35 MCV 80.9 fL (80.0-98.0) 03/01/20 21:35 MCH 26.1 pg (27.0-32.0) L 03/01/20 21:35 MCHC 32.2 g/dL (31.0-37.0) 03/01/20 21:35 RDW Std Deviation 55.3 fl (28.0-62.0) 03/01/20 21:35 RDW Coeff of Rafaela 19 % (11.0-15.0) H 03/01/20 21:35 Plt Count 193 K/uL (150-400) 03/01/20 21:35 MPV 12.20 fL (7.40-12.00) H 03/01/20 21:35 Nucleated RBC % 0.0 /100WBC 03/01/20 21:35 Nucleated RBCs # 0 K/uL 03/01/20 21:35 SARS-CoV-2 RNA (RADHA) NEGATIVE (NEGATIVE) 03/01/20 22:29 Blood Type A POSITIVE 03/01/20 23:00 Antibody Screen NEGATIVE 03/01/20 23:00 - Allergies Allergies/Adverse Reactions: Allergies Allergy/AdvReac Type Severity Reaction Status Date / Time No Known Allergies Allergy Verified 02/07/20 17:08 - Acknowledgements Anesthesia Type Planned: Epidural Pt an Appropriate Candidate for the Planned Anesthesia: Yes Alternatives and Risks of Anesthesia Discussed w Pt/Guardian: Yes Pt/Guardian Understands and Agrees with Anesthesia Plan: Yes PreAnesthesia Questionnaire - Past Health History Medical/Surgical History: Denies Medical/Surgical History HEENT History: Reports: None, Other (See Below) Other HEENT History: glasses Cardiovascular History: Reports: None Respiratory History: Reports: None Gastrointestinal History: Reports: None Genitourinary History: Reports: None BIOLOGICAL PHOTOGRAPHER History: Reports: Musculoskeletal History: Reports: None Neurological History: Reports: None Psychiatric History: Reports: Anxiety, Depression Endocrine/Metabolic History: Reports: None Hematologic History: Reports: None Immunologic History: Reports: None Oncologic (Cancer) History: Reports: None Dermatologic History: Reports: Other (See Below) Other Dermatologic History: Mastitis - Infectious Disease History Infectious Disease History: Reports: Chicken Pox, Other (See Below) - Past Surgical History Head Surgeries/Procedures: Reports: None - HOME MEDS Home Medications: Home Meds Pnv No.95/Ferrous Fum/Folic AC [ Tablet] 1 each PO DAILY 02/07/20 [History] valACYclovir HCl [valACYclovir] 1,000 mg PO DAILY 02/21/20 [History] - CURRENT (IN HOUSE) MEDS Current Meds: Current Medications Butorphanol Tartrate (Stadol) 1 mg IVPUSH Q1H PRN PRN Reason: Pain Carboprost Tromethamine (Hemabate Ds) 250 mcg IM ASDIRECTED PRN PRN Reason: Post Hemorrhage Oxytocin/Sodium Chloride (Oxytocin 30 Unit/500 Ml-Ns) 30 unit in 500 mls @ 999 mls/hr IV TITRATE [facility] Tranexamic Acid 1,000 mg/ (Sodium Chloride) 110 mls @ 660 mls/hr IV ONETIME PRN PRN Reason: Bleeding Lactated Ringer's (Ringers, Lactated) 1,000 mls @ 150 mls/hr IV ASDIRECTED [facility] Lidocaine HCl (Xylocaine 1%) 50 ml INJECT ONETIME PRN PRN Reason: Laceration repair Methylergonovine Maleate (Methergine) 0.2 mg IM ASDIRECTED PRN PRN Reason: Post Hemorrhage Misoprostol (Cytotec) 200 mcg PO ONETIME PRN PRN Reason: Post Hemorrhage Nalbuphine HCl (Nubain) 10 mg IVPUSH Q1H PRN PRN Reason: Pain (severe 7-10) Ondansetron HCl (Zofran) 4 mg IVPUSH Q4H PRN PRN Reason: Nausea/Vomiting Sodium Chloride (Saline Flush) 10 ml FLUSH ASDIRECTED PRN PRN Reason: Keep Vein Open Sodium Chloride (Saline Flush) 2.5 ml FLUSH ASDIRECTED PRN PRN Reason: Keep Vein Open Sodium Chloride (Normal Saline) 10 ml IV ASDIRECTED PRN PRN Reason: IV Use Sterile Water (Sterile Water For Irrigation) 1,000 ml IRR ASDIRECTED PRN PRN Reason: delivery Discontinued Medications Fentanyl (Sublimaze) Confirm Administered Dose 100 mcg .ROUTE .STK-MED ONE Stop: 03/02/20 04:03 Ropivacaine (Naropin 0.2%) Confirm Administered Dose 100 mls @ as directed .ROUTE .STK-MED ONE Stop: 03/02/20 04:03
--- NOTE | 2020-03-02 04:28 | PCM.PRNOTE ---
- Free Text/Narrative Note: Anes NOte Patietn requests epidural for L&D. Sitting position, level L3-L4 midline approach. Sterile technique. Chloraprep scrub to lumbar area. Sterile fenestrated drape applied. Epidural space easily achieved single attemp using DANG technique. DANG at 3 cm. Cath threaded 5 cm with ease. Cath secure using sterile clear adhesive dressing. Test 0412 3 cc 1.5% lido with epi negative 0415 Load 10 cc 0.2% ropivicaine with 1 mcg cc fentanyl in slow divided doses. 0417 Pump started wtih 90 cc same solution. Rate is 8 cc hr with 6 cc q 20 min prn bolus. Kingsley well. 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
--- NOTE | 2020-03-02 05:29 | PCM.DEL ---
L & D Note - General Info Date of Service: 03/02/20 Mother's Due Date: 02/29/20 - Delivery Note Labor: Spontaneous Delivery Outcome: Livebirth Infant Delivery Method: Spontaneous Vaginal Delivery-Single Presentation: Vertex Nuchal Cord: None Anesthesia Type: Epidural Amniotic Fluid Description: Clear Laceration: 2nd Degree Suture type: Vicryl Suture size: 3-0 Placenta: Intact, Spontaneous Cord: 3 Vessels Estimated Blood Loss: 400 Resuscitation Needed: No Score 1 min: 8 Score 5 min: 9 Second Stage Interventions: Reports: Second Nurse Assessed Progress of Descent, Second Nurse Reviewed Contraction Pattern, Second Nurse Reviewed Heart Tones, Encouragement Given, Pushing Effectively Delivery Comments (Free Text/Narrative):: viable male; epidural for pain relief; head delivered with good pushing, shoulders and body followed easily after; baby immediately to mom's abdomen [id number] for assessment; APGARs 8/9; weight pending; cord doubly clamped after cessation of pulsing, cut by support person; placenta delivered grossly intact, bradford; 3VC; EBL 400 mL; pitocin to IVF; 2nd degree perineal laceration repaired with 3-0 vicryl; mom and baby left in stable condition with nurse at bedside for assessment - General Info Date of Service: 03/02/20 Admission Dx/Problem (Free Text): Admission Diagnosis/Problem Admission Diagnosis/Problem 03/01/20 22:21 presenting to L&D at 40 1/7 weeks (TAZ: 02/29/20) with reports of regular uterine contractions, approximately q3-5 minutes; A+, Rubella equivocal, GBS negative; SVE by this teaching supervisor was 5cm/90%/-1, soft, midposition; vertex by Elijah's 03/01/20 22:27 Functional Status: Reports: Pain Controlled - Review of Systems General: Reports: No Symptoms HEENT: Reports: No Symptoms Pulmonary: Reports: No Symptoms Cardiovascular: Reports: No Symptoms Gastrointestinal: Reports: No Symptoms Genitourinary: Reports: No Symptoms Musculoskeletal: Reports: No Symptoms Skin: Reports: No Symptoms Neurological: Reports: No Symptoms Psychiatric: Reports: No Symptoms - Patient Data Weight - Most Recent: 177 lb Lab Results Last 24 Hours: Laboratory Results - last 24 hr 12/20/20 12/20/20 12/20/20 Range/Units 21:35 22:29 23:00 WBC 8.92 (4.0-11.0) K/uL RBC 4.87 (4.30-5.90) M/uL Hgb 12.7 (12.0-16.0) g/dL Hct 39.4 (36.0-46.0) % MCV 80.9 (80.0-98.0) fL MCH 26.1 L (27.0-32.0) pg MCHC 32.2 (31.0-37.0) g/dL RDW Std Deviation 55.3 (28.0-62.0) fl RDW Coeff of Rafaela 19 H (11.0-15.0) % Plt Count 193 (150-400) K/uL MPV 12.20 H (7.40-12.00) fL Nucleated RBC % 0.0 /100WBC Nucleated RBCs # 0 K/uL SARS-CoV-2 RNA (RADHA) NEGATIVE (NEGATIVE) Blood Type A POSITIVE Antibody Screen NEGATIVE Med Orders - Current: Current Medications Butorphanol Tartrate (Stadol) 1 mg IVPUSH Q1H PRN PRN Reason: Pain Carboprost Tromethamine (Hemabate Ds) 250 mcg IM ASDIRECTED PRN PRN Reason: Post Hemorrhage Oxytocin/Sodium Chloride (Oxytocin 30 Unit/500 Ml-Ns) 30 unit in 500 mls @ 999 mls/hr IV TITRATE [facility] Tranexamic Acid 1,000 mg/ (Sodium Chloride) 110 mls @ 660 mls/hr IV ONETIME PRN PRN Reason: Bleeding Lactated Ringer's (Ringers, Lactated) 1,000 mls @ 150 mls/hr IV ASDIRECTED [facility] Lidocaine HCl (Xylocaine 1%) 50 ml INJECT ONETIME PRN PRN Reason: Laceration repair Methylergonovine Maleate (Methergine) 0.2 mg IM ASDIRECTED PRN PRN Reason: Post Hemorrhage Misoprostol (Cytotec) 200 mcg PO ONETIME PRN PRN Reason: Post Hemorrhage Nalbuphine HCl (Nubain) 10 mg IVPUSH Q1H PRN PRN Reason: Pain (severe 7-10) Ondansetron HCl (Zofran) 4 mg IVPUSH Q4H PRN PRN Reason: Nausea/Vomiting Sodium Chloride (Saline Flush) 10 ml FLUSH ASDIRECTED PRN PRN Reason: Keep Vein Open Sodium Chloride (Saline Flush) 2.5 ml FLUSH ASDIRECTED PRN PRN Reason: Keep Vein Open Sodium Chloride (Normal Saline) 10 ml IV ASDIRECTED PRN PRN Reason: IV Use Sterile Water (Sterile Water For Irrigation) 1,000 ml IRR ASDIRECTED PRN PRN Reason: delivery Discontinued Medications Fentanyl (Sublimaze) Confirm Administered Dose 100 mcg .ROUTE .STK-MED ONE Stop: 03/02/20 04:03 Ropivacaine (Naropin 0.2%) Confirm Administered Dose 100 mls @ as directed .ROUTE .STK-MED ONE Stop: 03/02/20 04:03 - Exam General: Alert, Oriented, Cooperative, No Acute Distress Lungs: Normal Respiratory Effort Cardiovascular: Regular Rate, Regular Rhythm GI/Abdominal Exam: Soft, Non-Tender (Female) Exam: Other (2nd degree perineal laceration repaired with 3-0 vicryl) Back Exam: Normal Inspection Extremities: Normal Inspection Neurological: No New Focal Deficit, Normal Speech Psy/Mental Status: Alert, Normal Affect, Normal Mood - Problem List & Annotations (1) Supervision of normal IUP (intrauterine ) in multigravida SNOMED Code(s): 685096468, 153777468, 034960017 Code(s): Z34.80 - ENCOUNTER FOR SUPRVSN OF NORMAL , UNSP TRIMESTER Status: Acute Priority: High Current Visit: Yes Qualifiers: Trimester: third trimester Qualified Code(s): Z34.83 - Encounter for sup ervision of other normal , third trimester (2) (spontaneous vaginal delivery) SNOMED Code(s): 154837305 Code(s): O80 - ENCOUNTER FOR FULL-TERM UNCOMPLICATED DELIVERY Status: Acute Priority: High Current Visit: Yes - Problem List Review Problem List Initiated/Reviewed/Updated: Yes - Plan Plan:: Admit A: presenting to L&D at 40 1/7 weeks (TAZ: 02/29/20) with reports of regular uterine contractions, approximately q3-5 minutes; A+, Rubella equivocal, GBS negative; SVE by this teaching supervisor was 5cm/90%/-1, soft, midposition; vertex by Elijah's P: Anticipate ; epidural PRN; Dr. Miller updated. Delivery A: viable male; epidural for pain relief; APGARs 8/9; weight pending; cord doubly clamped after cessation of pulsing, cut by support person; placenta delivered grossly intact, bradford; 3VC; EBL 400 mL; pitocin to IVF; 2nd degree perineal laceration repaired with 3-0 vicryl; mom and baby left in stable condition with nurse at bedside for assessment P: Routine plan of care; Dr. Miller updated.
[2020-03-02] MEDS ORDERED: Docusate Sodium 100 MG Cap PO PRN (05:31)
[2020-03-02] MEDS ORDERED: Witch Hazel Medicated Pads 40/Jar TOP PRN (05:31)
[2020-03-02] MEDS ORDERED: Benzocaine/Menthol 20%-0.5% Spray 78 GM Cannister TOP PRN (05:31)
[2020-03-02] MEDS ORDERED: Bisacodyl 10 MG Supp RECTAL PRN (05:31)
[2020-03-02] MEDS ORDERED: Ibuprofen 800 MG Tab PO PRN (05:31)
[2020-03-02] MEDS ORDERED: Acetaminophen 500 MG Tab PO PRN ×2 (05:31)
[2020-03-02] MEDS ORDERED: oxyCODONE 5 MG Tab PO PRN (05:31)
[2020-03-02] MEDS ORDERED: Ibuprofen 400 MG Tab PO PRN (05:31)
[2020-03-02] MEDS ORDERED: Lanolin 100% Cream 7 GM Tube TOP PRN (05:31)
--- NOTE | 2020-03-02 13:00 | PCM48HPAN ---
Post Anesthesia Note - EVALUATION WITHIN 48HRS OF ANESTHETIC Vital Signs in Normal Range: Yes Patient Participated in Evaluation: Yes Respiratory Function Stable: Yes Airway Patent: Yes Cardiovascular Function Stable: Yes Hydration Status Stable: Yes Pain Control Satisfactory: Yes Nausea and Vomiting Control Satisfactory: Yes Mental Status Recovered: Yes Vital Signs: Last Vital Signs Temp 37.2 C 03/02/20 07:48 Pulse 71 03/02/20 07:48 Resp 20 03/02/20 07:48 BP 98/58 L 03/02/20 09:00 Pulse Ox 100 03/02/20 07:48 - COMMENTS/OBSERVATIONS Free Text/Narrative:: Denies any problems or discomforts
--- NOTE | 2020-03-03 18:17 | PCM.PNPP ---
- General Info Date of Service: 03/03/20 Admission Dx/Problem (Free Text): Admission Diagnosis/Problem Admission Diagnosis/Problem 03/01/20 22:21 presenting to L&D at 40 1/7 weeks (TAZ: 02/29/20) with reports of regular uterine contractions, approximately q3-5 minutes; A+, Rubella equivocal, GBS negative; SVE by this mold shaker was 5cm/90%/-1, soft, midposition; vertex by Elijah's 03/01/20 22:27 Subjective Update: course unremarkable thus far. Minimal bleeding. Pain well controlled. Ambulating without dizziness. Eating without nausea or vomiting. Voiding and stooling. Functional Status: Reports: Pain Controlled - Review of Systems General: Reports: No Symptoms HEENT: Reports: No Symptoms Pulmonary: Reports: No Symptoms Cardiovascular: Reports: No Symptoms Gastrointestinal: Reports: No Symptoms Genitourinary: Reports: No Symptoms Musculoskeletal: Reports: No Symptoms Skin: Reports: No Symptoms Neurological: Reports: No Symptoms Psychiatric: Reports: No Symptoms - General Info Date of Service: 03/03/20 - Patient Data Vital Signs - Most Recent: Last Vital Signs Temp 97.6 F 03/03/20 16:55 Pulse 61 03/03/20 16:55 Resp 18 03/03/20 16:55 BP 106/69 03/03/20 16:55 Pulse Ox 98 03/03/20 16:55 Weight - Most Recent: 80.286 kg Lab Results - Last 24 Hours: Laboratory Results - last 24 hr 03/03/20 Range/Units 04:51 Hgb 10.0 L (12.0-16.0) g/dL Hct 31.8 L (36.0-46.0) % Med Orders - Current: Current Medications Acetaminophen (Tylenol Extra Strength) 500 mg PO Q4H PRN PRN Reason: Pain Acetaminophen (Tylenol Extra Strength) 1,000 mg PO Q4H PRN PRN Reason: Pain Benzocaine/Menthol (Dermoplast Pain Relief 20%-0.5% [place]) 78 gm TOP ASDIRECTED PRN PRN Reason: Perineal Comfort Measure Last Admin: 03/02/20 09:35 Dose: 1 can Documented by: Bisacodyl (Dulcolax) 10 mg RECTAL ONETIME PRN PRN Reason: Constipation Docusate Sodium (Colace) 100 mg PO BID PRN PRN Reason: Constipation Emollient Ointment (Lansinoh Hpa) 0 gm TOP ASDIRECTED PRN PRN Reason: Sore Nipples Last Admin: 03/02/20 09:35 Dose: 7 gm Documented by: Ibuprofen (Motrin) 400 mg PO Q4H PRN PRN Reason: Pain Ibuprofen (Motrin) 800 mg PO Q6H PRN PRN Reason: Pain Oxycodone HCl (Oxycodone) 5 mg PO Q2H PRN PRN Reason: Pain Witch Aubrie (Tucks) 1 pad TOP ASDIRECTED PRN PRN Reason: comfort care Last Admin: 03/02/20 09:35 Dose: 1 container Documented by: Discontinued Medications Butorphanol Tartrate (Stadol) 1 mg IVPUSH Q1H PRN PRN Reason: Pain Carboprost Tromethamine (Hemabate Ds) 250 mcg IM ASDIRECTED PRN PRN Reason: Post Hemorrhage Fentanyl (Sublimaze) Confirm Administered Dose 100 mcg .ROUTE .[employer] ONE Stop: 03/02/20 04:03 Last Admin: 03/02/20 08:19 Dose: Not Given Documented by: Oxytocin/Sodium Chloride (Oxytocin 30 Unit/500 Ml-Ns) 30 unit in 500 mls @ 999 mls/hr IV TITRATE [facility] Last Admin: 03/02/20 04:56 Dose: 999 mls/hr Documented by: Tranexamic Acid 1,000 mg/ (Sodium Chloride) 110 mls @ 660 mls/hr IV ONETIME PRN PRN Reason: Bleeding Lactated Ringer's (Ringers, Lactated) 1,000 mls @ 150 mls/hr IV ASDIRECTED [facility] Last Admin: 03/02/20 04:00 Dose: 999 mls/hr Documented by: Ropivacaine (Naropin 0.2%) Confirm Administered Dose 100 mls @ as directed .ROUTE .[employer]-MED ONE Stop: 03/02/20 04:03 Last Admin: 03/02/20 08:19 Dose: Not Given Documented by: Lidocaine HCl (Xylocaine 1%) 50 ml INJECT ONETIME PRN PRN Reason: Laceration repair Methylergonovine Maleate (Methergine) 0.2 mg IM ASDIRECTED PRN PRN Reason: Post Hemorrhage Misoprostol (Cytotec) 200 mcg PO ONETIME PRN PRN Reason: Post Hemorrhage Nalbuphine HCl (Nubain) 10 mg IVPUSH Q1H PRN PRN Reason: Pain (severe 7-10) Ondansetron HCl (Zofran) 4 mg IVPUSH Q4H PRN PRN Reason: Nausea/Vomiting Sodium Chloride (Saline Flush) 10 ml FLUSH ASDIRECTED PRN PRN Reason: Keep Vein Open Sodium Chloride (Saline Flush) 2.5 ml FLUSH ASDIRECTED PRN PRN Reason: Keep Vein Open Sodium Chloride (Normal Saline) 10 ml IV ASDIRECTED PRN PRN Reason: IV Use Sterile Water (Sterile Water For Irrigation) 1,000 ml IRR ASDIRECTED PRN PRN Reason: delivery - Interaction Support Person: Other (see below) - Recovery Exam Fundal Tone: Firm Fundal Level: 1 Fingerbreadths Below Umbilicus Fundal Placement: Midline Lochia Amount: Scant, Small Lochia Color: Rubra/Red Perineum Description: Other (see below) Other Perinuem Description: 2nd degree laceration with repair. Episiotomy/Laceration: None Bladder Status: Voiding Urinary Elimination: Voided - Exam General: Alert, Oriented Neck: Supple Lungs: Normal Respiratory Effort Cardiovascular: Regular Rate GI/Abdominal Exam: Soft, Non-Tender Extremities: Normal Inspection Skin: Warm Psy/Mental Status: Alert, Normal Affect, Normal Mood - Problem List & Annotations (1) (spontaneous vaginal delivery) SNOMED Code(s): 746592650 Code(s): O80 - ENCOUNTER FOR FULL-TERM UNCOMPLICATED DELIVERY Status: Acute Priority: High Current Visit: Yes - Problem List Review Problem List Initiated/Reviewed/Updated: Yes - Assessment Assessment:: G2 now P2 s/p at 40 1/7 weeks of viable male; epidural for pain relief; APGARs 8/9. - Plan Plan:: Continue Routine plan of care
--- NOTE | 2020-03-04 08:32 | PCM.DCSUM1 ---
Discharge Summary - Hospital Course Free Text/Narrative:: Discharge home. Follow up in the clinic in 6 weeks for routine visit; sooner, if needed. Diagnosis: Stroke: No Modified Owsley Scale: No Symptoms at All Modified Owsley Scale Score: 0 - Discharge Data Discharge Date: 03/04/20 Discharge Disposition: Home, Self-Care 01 Condition: Good - Referral to Home Health Primary Care Physician: PCP None - Discharge Diagnosis/Problem(s) (1) Supervision of normal IUP (intrauterine ) in multigravida SNOMED Code(s): 612442966, 243702925, 509680021 ICD Code: Z34.80 - ENCOUNTER FOR SUPRVSN OF NORMAL , UNSP TRIMESTER Status: Acute Priority: High Current Visit: Yes Qualifiers: Trimester: third trimester Qualified Code(s): Z34.83 - Encounter for supervision of other normal , third trimester (2) (spontaneous vaginal delivery) SNOMED Code(s): 594659241 ICD Code: O80 - ENCOUNTER FOR FULL-TERM UNCOMPLICATED DELIVERY Status: Acute Priority: High Current Visit: Yes - Patient Instructions Diet: Usual Diet as Tolerated, Regular Diet as Tolerated, Drink 8-10+ Gla sses/Day Activity: As Tolerated, No Strenuous Activities, Rest and Relax Today Driving: May Drive Today Showering/Bathing: May Shower Notify Provider of: Fever, Increased Pain, Swelling and Redness, Drainage, Nausea and/or Vomiting - Discharge Plan *PRESCRIPTION DRUG MONITORING PROGRAM REVIEWED*: Not Applicable *COPY OF PRESCRIPTION DRUG MONITORING REPORT IN PATIENT [place]ERLEY: Not Applicable Prescriptions/Med Rec: Ibuprofen [Motrin] 800 mg PO Q6H PRN #90 tablet PRN Reason: Pain Home Medications: Home Meds Pnv No.95/Ferrous Fum/Folic AC [ Tablet] 1 each PO DAILY 02/07/20 [ History] valACYclovir HCl [valACYclovir] 1,000 mg PO DAILY 02/21/20 [History] Ibuprofen [Motrin] 800 mg PO Q6H PRN #90 tablet 03/04/20 [Rx] Oxygen Therapy Mode: Room Air Referrals: [facility] [Outside] Savita Bradford CNM [Mid-] - 03/30/20 10:30 am (Your post follow-up appointment is on 1/18/21 at 10:30 am with Savita Bradford. Masks are required.) - Discharge Summary/Plan Comment DC Time >30 min.: Yes - General Info Date of Service: 03/04/20 Admission Dx/Problem (Free Text: Admission Diagnosis/Problem Admission Diagnosis/Problem 03/01/20 22:21 presenting to L&D at 40 1/7 weeks (TAZ: 02/29/20) with reports of regular uterine contractions, approximately q3-5 minutes; A+, Rubella equivocal, GBS negative; SVE by this pin sticker was 5cm/90%/-1, soft, midposition; vertex by Elijah's 03/01/20 22:27 Subjective Update: course unremarkable thus far. Minimal bleeding. Pain well controlled. Ambulating without dizziness. Eating without nausea or vomiting. Voiding and stooling. Functional Status: Reports: Pain Controlled, Tolerating Diet, Ambulating, Urinating - Review of Systems General: Reports: No Symptoms HEENT: Reports: No Symptoms Pulmonary: Reports: No Symptoms Cardiovascular: Reports: No Symptoms Gastrointestinal: Reports: No Symptoms Genitourinary: Reports: No Symptoms Musculoskeletal: Reports: No Symptoms Skin: Reports: No Symptoms Neurological: Reports: No Symptoms Psychiatric: Reports: No Symptoms - Patient Data Vitals - Most Recent: Last Vital Signs Temp 98.2 F 03/04/20 07:33 Pulse 69 03/04/20 07:33 Resp 20 03/04/20 07:33 BP 119/75 03/04/20 07:33 Pulse Ox 98 03/04/20 07:33 Weight - Most Recent: 177 lb Med Orders - Current: Current Medications Acetaminophen (Tylenol Extra Strength) 500 mg PO Q4H PRN PRN Reason: Pain Acetaminophen (Tylenol Extra Strength) 1,000 mg PO Q4H PRN PRN Reason: Pain Benzocaine/Menthol (Dermoplast Pain Relief 20%-0.5% [place]) 78 gm TOP ASDIRECTED PRN PRN Reason: Perineal Comfort Measure Last Admin: 03/02/20 09:35 Dose: 1 can Documented by: Bisacodyl (Dulcolax) 10 mg RECTAL ONETIME PRN PRN Reason: Constipation Docusate Sodium (Colace) 100 mg PO BID PRN PRN Reason: Constipation Emollient Ointment (Lansinoh Hpa) 0 gm TOP ASDIRECTED PRN PRN Reason: Sore Nipples Last Admin: 03/02/20 09:35 Dose: 7 gm Documented by: Ibuprofen (Motrin) 400 mg PO Q4H PRN PRN Reason: Pain Ibuprofen (Motrin) 800 mg PO Q6H PRN PRN Reason: Pain Oxycodone HCl (Oxycodone) 5 mg PO Q2H PRN PRN Reason: Pain Witch Aubrie (Tucks) 1 pad TOP ASDIRECTED PRN PRN Reason: comfort care Last Admin: 03/02/20 09:35 Dose: 1 container Documented by: Discontinued Medications Butorphanol Tartrate (Stadol) 1 mg IVPUSH Q1H PRN PRN Reason: Pain Carboprost Tromethamine (Hemabate Ds) 250 mcg IM ASDIRECTED PRN PRN Reason: Post Hemorrhage Fentanyl (Sublimaze) Confirm Administered Dose 100 mcg .ROUTE .STK-MED ONE Stop: 03/02/20 04:03 Last Admin: 03/02/20 08:19 Dose: Not Given Documented by: Oxytocin/Sodium Chloride (Oxytocin 30 Unit/500 Ml-Ns) 30 unit in 500 mls @ 999 mls/hr IV TITRATE [facility] Last Admin: 03/02/20 04:56 Dose: 999 mls/hr Documented by: Tranexamic Acid 1,000 mg/ (Sodium Chloride) 110 mls @ 660 mls/hr IV ONETIME PRN PRN Reason: Bleeding Lactated Ringer's (Ringers, Lactated) 1,000 mls @ 150 mls/hr IV ASDIRECTED [facility] Last Admin: 03/02/20 04:00 Dose: 999 mls/hr Documented by: Ropivacaine (Naropin 0.2%) Confirm Administered Dose 100 mls @ as directed .ROUTE .STK-MED ONE Stop: 03/02/20 04:03 Last Admin: 03/02/20 08:19 Dose: Not Given Documented by: Lidocaine HCl (Xylocaine 1%) 50 ml INJECT ONETIME PRN PRN Reason: Laceration repair Methylergonovine Maleate (Methergine) 0.2 mg IM ASDIRECTED PRN PRN Reason: Post Hemorrhage Misoprostol (Cytotec) 200 mcg PO ONETIME PRN PRN Reason: Post Hemorrhage Nalbuphine HCl (Nubain) 10 mg IVPUSH Q1H PRN PRN Reason: Pain (severe 7-10) Ondansetron HCl (Zofran) 4 mg IVPUSH Q4H PRN PRN Reason: Nausea/Vomiting Sodium Chloride (Saline Flush) 10 ml FLUSH ASDIRECTED PRN PRN Reason: Keep Vein Open Sodium Chloride (Saline Flush) 2.5 ml FLUSH ASDIRECTED PRN PRN Reason: Keep Vein Open Sodium Chloride (Normal Saline) 10 ml IV ASDIRECTED PRN PRN Reason: IV Use Sterile Water (Sterile Water For Irrigation) 1,000 ml IRR ASDIRECTED PRN PRN Reason: delivery - Exam General: Reports: Alert, Oriented, Cooperative, No Acute Distress Lungs: Reports: Normal Respiratory Effort Cardiovascular: Reports: Regular Rate, Regular Rhythm GI/Abdominal Exam: Soft, Non-Tender (Female) Exam: Deferred Rectal (Female) Exam: Deferred Back Exam: Reports: Normal Inspection, Full Range of Motion Extremities: Normal Inspection, Normal Range of Motion, Normal Capillary Refill Skin: Reports: Warm, Dry, Intact Wound/Incisions: Reports: Healing Well Neurological: Reports: No New Focal Deficit, Normal Gait, Normal Speech, Normal Tone Psy/Mental Status: Reports: Alert, Normal Affect, Normal Mood
== END 2020-03-04 12:30 | disposition home or self-care (01) | DRG 560 ==
LOC: MW.OBCHECK 19:14 → MW.OB 19:16 → MW.OBCHECK 22:34 → MW.OB 22:34 → OBSVTOIN 03-02 04:56 → MW.OB 03-02 10:05
PROVIDERS: ADMIT Obstetrics & Gynecology; ATTEND Obstetrics & Gynecology
PROC: 10E0XZZ Delivery of Products of Conception, External Approach (ICD-10-PCS; principal; 2020-03-02)
PROC: 10907ZC Drainage of Amniotic Fluid, Therapeutic from Products of Conception, Via Natural or Artificial Opening (ICD-10-PCS; 2020-03-02)
PROC: 0KQM0ZZ Repair Perineum Muscle, Open Approach (ICD-10-PCS; 2020-03-02)
PROC: 3E0R3BZ Introduction of Anesthetic Agent into Spinal Canal, Percutaneous Approach (ICD-10-PCS; 2020-03-02)
PROC: 00HU33Z Insertion of Infusion Device into Spinal Canal, Percutaneous Approach (ICD-10-PCS; 2020-03-02)
DX: O70.1 Second degree perineal laceration during delivery (principal); Z3A.40 40 weeks gestation of pregnancy; Z37.0 Single live birth; Z20.828 Contact with and (suspected) exposure to other viral communicable diseases
CPT/HCPCS: 36415; 59025; 59409; 85014; 85018; 85027; 86592; 86850; 86900; 86901; A9270-GY; J2590; J7120; U0002